=== PATIENT | female | born 1985 ===

== ENCOUNTER 2017-11-02 08:00 | Day surgery (SDC) | payer OTHER ==
[~2017-11-02 08:00] MED LIST: AMBIEN10 MG PO; AMLODIPINE BESYL5 MG PO; AVAPRO150 MG PO; HYDROCHLOROTHIA25 MG PO; SYNTHROID150 MCG PO
== END 2017-11-02 13:50 | disposition home or self-care (01) ==
LOC: CIR.AMB 08:00
DX: N84.0 Polyp of corpus uteri (principal)

== ENCOUNTER 2018-05-17 10:25 | Day surgery (SDC) | payer OTHER | END 2018-05-17 19:10 | disposition home or self-care (01) | LOC: CIR.AMB 10:25 | DX: N85.01 Benign endometrial hyperplasia (principal) ==